=== PATIENT | female | born 1960 | race Asian ===

== ENCOUNTER → 2020-05-13 | Outpatient (CLI) | payer OTHER | LOC: ZCOL.LAB 13:51 | DX: Z20.828 Contact with and (suspected) exposure to other viral communicable diseases (principal) ==

== ENCOUNTER 2023-01-18 12:09 | Day surgery (SDC) | payer OTHER ==
[~2023-01-18] VITALS: Ht 157.5 cm; Wt 102.1 kg
[~2023-01-18 12:09] MED LIST: FLOMAX 0.40.4 MG/CAP PO; PERCOCET 325 MG1 TA2 PO
[2023-01-18] MEDS ORDERED: NORVASC 5MG5 MG/TAB PO (13:21)
[2023-01-18 13:22] VITALS: BP 156/96; PULSE 97; TEMP 98.8
[2023-01-18] MEDS ORDERED: ADVIL200 MG PO (13:22)
[2023-01-18 15:28] VITALS: BP 151/82; PULSE 87; TEMP 97.9
--- NOTE | 2023-01-18 15:28 | NUR ---
PATIENT ARRIVED TO BAY [facility] ON CART, ALERT AND ORIENTED. PATIENT DENIES PAIN AND NAUSEA. BREATHING REGULAR AND UNLABORED. SEE CHART FOR VITAL SIGNS. NURSE HANDOFF COMPLETED IN ROOM. PATIENT HAD WATER AND PATTIE CRACKERS, BOTH TOLERATED WELL. CALL LIGHT IN REACH. PATIENT SPOUSE PRESENT IN ROOM.
[2023-01-18 15:45] VITALS: BP 149/81; PULSE 91
--- NOTE | 2023-01-18 15:52 | NUR ---
PATIENT ALERT AND ORIENTED, DENIES PAIN AND NAUSEA. PATIENT REPORTED ABDOMINAL FULLNESS, WHICH IMPROVED AFTER VOIDING. URINE DESCRIBED BLOOD TINGED, PATIENT DENIED ANY DIFFICULTY VOIDING.
[2023-01-18 16:00] VITALS: BP 150/80; PULSE 86
[2023-01-18 16:15] VITALS: BP 155/82; PULSE 90
--- NOTE | 2023-01-18 16:15 | NUR ---
PATIENT AMBULATED TO RESTROOM WITH STEADY GAIT AND VOIDED WITHOUT DIFFICULTY. DISCHARGE TEACHING COMPLETED WITH PRINTED EDUCATION AND INSTRUCTIONS SENT HOME WITH PATIENT. BOTH PATIENT AND SPOUSE VERBALIZED UNDERSTANDING OF TEACHING. FOLLOW UP APPOINTMENT DATE COMMUNICATED TO PATIENT AND SPOUSE. IV REMOVED. PATIENT CHANGED IN TO PERSONAL CLOTHING AND WAS DISCHARGE HOME WITH SPOUSE TRANSPORT.
== END 2023-01-18 16:38 | disposition home or self-care (01) ==
LOC: SDCO 12:09
DX: N20.1 Calculus of ureter (principal)
CPT/HCPCS: C1769; C2617; J0360; J0690; J1100; J2405; J2704; J3010; J7120